=== PATIENT | female | born 1960 | race Caucasian/White ===

== ENCOUNTER → 2016-06-14 | Outpatient (CLI) | payer OTHER ==
--- NOTE | 2016-06-14 16:41 | MA ---
Screening Digital Mammogram Clinical Indications: Routine screening. Technique: Standard cephalocaudal and mediolateral oblique projections are obtained. This examinatio n is processed by the [facility] computer aided detection system. Comparison: May 17, 2014; January 19, 2013; and studies dating back to January 22, 2008. Breast density: C; The breasts are heterogeneously dense, which may obscure small masses. Findings: CAD was reviewed. There are no new masses, new clusters of microcalcifications, or significant axillary lymphadenopathy . Impression: Negative mammogram. BI-RADS 1. Recommendation: Routine screening mammogram is recommended in one year. Dense mammographic pattern limits the sensitivity of mammography in this patient. If there is a clini macarena palpable abnormality, recommend additional imaging with ultrasound if clinically indicated. [facility] will send a result letter to the patient. Negative mammography should not preclude additional workup of a clinically suspicious finding. The patient's information is entered into a reminder system with a target due date for her next mammo gram.
== END ==
LOC: BMCIMAGING 11:12
DX: Z12.31 Encounter for screening mammogram for malignant neoplasm of breast (principal)
CPT/HCPCS: G0202

== ENCOUNTER → 2017-01-07 | Outpatient (CLI) | payer OTHER ==
[~2017-01-07] MED LIST: IOPAMIDOL (ISOVUE-300) 100 ML BTL ONE
== END ==
LOC: FIMAGING 11:30
PROVIDERS: ATTEND Internal Medicine
DX: R10.9 Unspecified abdominal pain (principal); N20.0 Calculus of kidney
CPT/HCPCS: Q9967

== ENCOUNTER → 2018-04-11 | Outpatient (CLI) | payer OTHER | LOC: BMCIMAGING 15:30 | PROVIDERS: ATTEND Family Medicine | DX: M89.8X4 Other specified disorders of bone, hand (principal) ==